=== PATIENT | female | born 1955 | race Caucasian/White ===

== ENCOUNTER → 2018-04-25 | Outpatient (CLI) | payer OTHER ==
--- NOTE | ~2018-04-25 | PF ---
[address] [address] PULMONARY FUNCTION REPORT Name: CHARLEE IGLESIAS Room: [facility].#: [id number] Admission: 04/25/18 Attend Phys: Samantha. POOJA Martin Discharge: Date of : 57 Report #: [id number] THIS REPORT FOR: //name// CC: DR PAULO Welch DATE OF SERVICE: 04/25/2018 Snehal Welch is the nurse practitioner. She works with Dr. Nadia Lau's office and Dr. Sheppard's office out in [place].. A 62-year-old female with cough and dyspnea. Spirometry demonstrates moderate obstructive defect. There is mild improvement after single dose of inhaled bronchodilator, but only 7% improvement in FEV1. 100 mL improvement was noted. A 10% improvement in forced vital capacity. Best numbers after bronchodilator show an FEV1 of 1.4 and FVC of 2.95, ratio is 48%, decreased mid flow rates are noted without much improvement. FEV1 is 60% improvement, putting her at a GOLD level 2. Lung volumes performed via plethysmography show mild increase in residual volume 135% of predicted, consistent with hyperinflation. Diffusion when corrected for alveolar volume is within normal limits to 92%. IMPRESSION: Abnormalities suggest moderate obstructive defect. No significant improvement after single dose of inhaled bronchodilator. Hyperinflation and decreased lung and decreased DLCO were noted. By: 1244 Amol Haynes MD /nt
--- NOTE | 2018-04-25 13:05 | 2DMMODE ---
[place] [address] 2 D/M-MODE ECHOCARDIOGRAM Name: CHARLEE IGLESIAS Room: [facility]#: [id number] Admission: 04/25/18 Attend Phys: Samantha. POOJA Donald Discharge: Date of : 57 Date of Service: 04/25/18 1305 Report #: [id number] THIS REPORT FOR: //name// APPROVED REPORT Study performed: 04/25/2018 09:16:48 EXAM: Comprehensive 2D, Doppler, and color-flow Echocardiogram Patient Location: Out-Patient Status: routine BSA: 1.62 HR: 87 bpm BP: 130/78 mmHg Other Information Study Quality: Good Indications Dyspnea 2D Dimensions IVSd: 8.16 (7-11mm) LVOT Diam: 20.06 (18-24mm) LVDd: 38.98 mm PWd: 8.36 (7-11mm) Ascending Ao: 23.38 (22-36mm) LVDs: 25.63 (25-40mm) Aortic Root: 25.40 mm Volumes Left Atrial Volume (Systole) LA ESV Index: 15.20 mL/m2 Aortic Valve AoV Peak Edu.: 1.39 m/s AO Peak Gr.: 7.77 mmHg LVOT Max P.63 mmHg AO Mean Gr.: 3.96 mmHg LVOT Mean P.23 mmHg LVOT Max V: 1.38 m/s AO V2 VTI: 25.29 cm LVOT Mean V: 0.81 m/s [place] (VTI): 3.35 cm2 LVOT V1 VTI: 26.82 cm Mitral Valve E/A Ratio: 1.05 MV Decel. Time: 203.05 ms MV E Max Edu.: 0.78 m/s MV PHT: 58.88 [place] [address] 2 D/M-MODE ECHOCARDIOGRAM Name: CHARLEE IGLESIAS Room: [facility]#: [id number] Admission: 04/25/18 Attend Phys: Samantha. POOJA Donald Discharge: Date of : 57 Date of Service: 04/25/18 1305 Report #: [id number] MVA (PHT): 3.74 cm2 TDI E/Lateral E': 7.80 E/Medial E': 7.09 Medial E' Edu.: 0.11 m/s Lateral E' Edu.: 0.10 m/s Pulmonary Valve PV Peak Edu.: 0.89 m/s PV Peak Gr.: 3.14 mmHg Left Ventricle The left ventricle is normal size. There is normal LV segmental wall motion. There is normal left ventricular wall thickness. Left ventricular systolic function is normal. The left ventricular ejection fraction is within the normal range. LVEF is 55-60%. The left ventricular diastolic function is normal. Right Ventricle The right ventricle is normal size. The right ventricular systolic function is normal. Atria The left atrium size is normal. The right atrium size is normal. Aortic Valve The aortic valve is normal in structure. No aortic regurgitation is present. There is no aortic valvular stenosis. Mitral Valve The mitral valve is normal in structure. There is no mitral valve regurgitation noted. No evidence of mitral valve stenosis. Tricuspid Valve The tricuspid valve is normal in structure. There is no tricuspid valve regurgitation noted. Pulmonic Valve The pulmonary valve is normal in structure. There is no pulmonic valvular regurgitation. Great Vessels The aortic root is normal in size. IVC is normal in size and collapses >50% with inspiration[place] [address] 2 D/M-MODE ECHOCARDIOGRAM Name: UZAIRMAURICIOCHARLEE PRUITT Room: [facility]#: [id number] Admission: 04/25/18 Attend Phys: Samantha. POOJA Donald Discharge: Date of : 57 Date of Service: 04/25/18 1305 Report #: [id number] There is no pericardial effusion. <Conclusion> The left ventricle is normal size. There is normal left ventricular wall thickness. Left ventricular systolic function is normal. The left ventricular ejection fraction is within the normal range. LVEF is 55-60%. The left ventricular diastolic function is normal. The right ventricle is normal size. The left atrium size is normal. The aortic valve is normal in structure. The mitral valve is normal in structure. The tricuspid valve is normal in structure. IVC is normal in size and collapses >50% with inspiration. There is no pericardial effusion. There is normal LV segmental wall motion. <ELECTRONICALLY SIGNED> By: Barak Arauz MD, FACC 04/25/18 1305 1305 1305 Barak Arauz MD, FACC /INF
== END ==
LOC: M.CRD 04-04 08:03
DX: R91.8 Other nonspecific abnormal finding of lung field (principal); R06.02 Shortness of breath